=== PATIENT | female | born 1985 | race Caucasian/White ===

== ENCOUNTER 2020-12-11 15:22 | Emergency (ER) | payer OTHER ==
[~2020-12-11] VITALS: Ht 165.1 cm; Wt 74.8 kg
[2020-12-11] MEDS ORDERED: PROTONIX 20 MG20 MG PO (15:39)
[2020-12-11 15:56] LABS: ABSOLUTE NEUTROPHILS 6.2 thou/uL (1.4-8.2); BASOPHILS 0.5 % (0.0-2.0); EOSINOPHILS 3.1 % (0.0-3.0); HEMATOCRIT 39.3 % (37.0-47.0); HEMOGLOBIN 13.8 gm/dL (12.0-15.0); LYMPHOCYTES 25.7 % (24.0-44.0); MCH 32.2 pg (26.0-34.0); MCHC 35.2 g/dL (28.0-37.0); MCV 91.6 fL (80.0-100.0); MONOCYTES 6.3 % (1.0-8.0); PLATELET COUNT 286 thou/uL (150-400); POLYS 64.4 % (36.0-66.0); RBC 4.29 mil/uL (4.20-5.00); RDW 12.5 % (10.5-14.5); WBC 9.6 thou/uL (4.0-11.0)
[2020-12-11 16:00] LABS: CALCIUM 8.9 mg/dL (8.5-10.1); POTASSIUM 3.9 mmol/L (3.5-5.1)
[2020-12-11 16:06] LABS: ALBUMIN 3.4 g/dL (3.4-5.0); TOTAL PROTEIN 7.2 g/dL (6.4-8.2)
[2020-12-11 18:14] VITALS: BP 121/73
--- NOTE | 2020-12-12 09:33 | EKG ---
[address] [address] ELECTROCARDIOGRAM REPORT Name: HELENA BURGOS Room #: [facility] Price#: [id number] Admission: 12/11/20 Attend Phys: Discharge: 12/11/20 Date of : 81 Report #: [id number] 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
== END 2020-12-11 18:14 | disposition home or self-care (01) ==
LOC: ER 15:22
PROVIDERS: Emergency Medicine
DX: R07.89 Other chest pain (principal); B34.9 Viral infection, unspecified; Z79.899 Other long term (current) drug therapy